=== PATIENT | female | born 1970 ===

== ENCOUNTER 2016-10-17 05:28 | Emergency (ER) | payer OTHER ==
[2016-10-17 05:54] VITALS: RESP 20
--- NOTE | 2016-10-17 06:21 | C.PDOC ---
History Of Present Illness 46 year old female presents to the ED complaining of vaginal pressure, dysuria, and hematuria for two days. Patient notes she had a partial hysterectomy and denies fever, abdominal pain, and vaginal discharge. Time Seen by Provider: 10/17/16 05:40 Chief Complaint (Nursing): Female Genitourinary History Per: Patient History/Exam Limitations: no limitations Onset/Duration Of Symptoms: Days Current Symptoms Are (Timing): Still Present Quality Of Discomfort: Pressure Associated Symptoms: denies: Fever, Chills, Nausea, Vomiting, Diarrhea Abnormal Vaginal Bleeding: No Past Medical History Reviewed: Historical Data, Nursing Documentation, Vital Signs Vital Signs: Last Vital Signs Temp 98.5 F 10/17/16 05:48 Pulse 82 10/17/16 05:48 Resp 20 10/17/16 05:48 BP 129/85 10/17/16 05:48 Pulse Ox 98 10/17/16 06:24 - Medical History PMH: Colonic Polyps, Gastritis, Gall Bladder Disease, Obstructive Bowel (10/23/14 ) Surgical History: Appendectomy, Cholecystectomy, Endoscopy - [facility] Procedures CLOSED ENDOSCOPIC BIOPSY OF LARGE INTESTINE (01/16/15) INSPECTION OF LOWER INTESTINAL TRACT, PERC ENDO APPROACH (04/22/15) RESECTION OF CERVIX, ENDO (12/23/15) RESECTION OF ILEOCECAL VALVE, OPEN APPROACH (04/22/15) RESECTION OF RIGHT FALLOPIAN TUBE, ENDO (12/23/15) RESECTION OF RIGHT OVARY, ENDO (12/23/15) RESECTION OF UTERUS, ENDO (12/23/15) Family History: States: Unknown Family Hx - Social History Hx Tobacco Use: No Hx Alcohol Use: No Hx Substance Use: No - Immunization History Hx Influenza Vaccination: No Hx Pneumococcal Vaccination: No Review Of Systems Constitutional: Negative for: Fever, Chills, Sweats Cardiovascular: Negative for: Chest Pain Respiratory: Negative for: Cough, Shortness of Breath Gastrointestinal: Negative for: Nausea, Vomiting, Abdominal Pain, Diarrhea Genitourinary: Positive for: Dysuria, Hematuria. Negative for: Vaginal Discharge, Vaginal Bleeding Physical Exam - Physical Exam Appears: Non-toxic, No Acute Distress Skin: Warm, Dry, No Rash Head: Atraumatic Neck: Supple Chest: Symmetrical, No Deformity Cardiovascular: Rhythm Regular Gastrointestinal/Abdominal: Soft, No Tenderness, No Distention, No Guarding, No Rebound Pelvic: No Vaginal Bleeding, No Vaginal Discharge, No Mass (no palpable mass ) Extremity: Normal ROM, No Tenderness Neurological/Psych: Oriented x3 ED Course And Treatment O2 Sat by Pulse Oximetry: 98 (room air ) Pulse Ox Interpretation: Normal Progress Note: UA reviewed- Pt with UTI. will d/C on PO abx and pain medications. Pt advised to follow up in clinic and to return to ER if sx worsen Disposition Counseled Patient/Family Regarding: Diagnosis, Need For Followup, Rx Given - Disposition Referrals: [facility] [Outside] Disposition: HOME/ ROUTINE Disposition Time: 06:48 Condition: STABLE Additional Instructions: Increase PO fluids Take medications as directed Follow up with PMD/ FACILITIES PLANNER clinic Return to ER if worse Prescriptions: Ibuprofen [Motrin] 600 mg PO Q6H #30 tab Nitrofurantoin Macrocrystals [Macrobid] 1 cap PO BID #14 cap Instructions: Urinary Tract Infection in Women (ED) Print Language: POLISH - Clinical Impression Clinical Impression: Urinary tract infection - Scribe Statement The provider has reviewed the documentation as recorded by the Scribsolitario Abraham All medical record entries made by the Rebecaibsolitario were at my direction and personally dictated by me. I have reviewed the chart and agree that the record accurately reflects my personal performance of the history, physical exam, medical decision making, and the department course for this patient. I have also personally directed, reviewed, and agree with the discharge instructions and disposition.
[2016-10-17 06:44] LABS: RBC URINE 4 /hpf (0-3); URINE BILIRUBIN NEGATIVE (NEGATIVE); URINE BLOOD 2+ (NEGATIVE); URINE COLOR Yellow (YELLOW); URINE GLUCOSE (UA) NORMAL (Normal); URINE HYALINE CAST 0-2 /lpf (0-2); URINE KETONE NEGATIVE (NEGATIVE); URINE LEUKOCYTE ESTERASE NEG Leu/uL (Negative); URINE PROTEIN 1+ mg/dL (NEGATIVE); URINE UROBILINOGEN NORMAL mg/dL (0.2-1.0); WBC URINE 9 /hpf (0-5)
[2016-10-17 07:04] VITALS: BP 124/78; PULSE 78; TEMP 98; O2SAT 97
== END 2016-10-17 07:01 | disposition home or self-care (01) ==
LOC: C.ER 05:28
DX: N39.0 Urinary tract infection, site not specified (principal)

== ENCOUNTER 2017-01-26 06:20 | Emergency (ER) | payer OTHER ==
[2017-01-26 06:21] VITALS: BMI 31.9
[2017-01-26 07:23] LABS: URINE BILIRUBIN NEGATIVE (NEGATIVE); URINE BLOOD NEGATIVE (NEGATIVE); URINE COLOR YELLOW (YELLOW); URINE GLUCOSE (UA) NEGATIVE (Normal); URINE KETONE NEGATIVE (NEGATIVE); URINE PROTEIN NEGATIVE (NEGATIVE); URINE UROBILINOGEN Normal mg/dL (0.2-1.0)
[2017-01-26 07:24] LABS: RBC URINE < 1 /hpf (0-3); URINE BACTERIA RARE (<OCC); URINE LEUKOCYTE ESTERASE NEGATIVE Leu/uL (Negative); WBC URINE 2 /hpf (0-5)
[2017-01-26] MEDS ORDERED: Sodium Chloride 0.9% 1,000 ML IV ONE (07:25)
--- NOTE | 2017-01-26 07:39 | C.PDOC ---
History Of Present Illness 46 y/o female presents to ED with c/o RUQ abdominal pain x Tuesday (2 days). Patient reports associated nausea, 1 episode of vomiting, and reports stools are of whitish color. Patient notes past history of appendectomy and cholecystectomy. Denies fever, chills, diarrhea, urinary symptoms, or other associated symptoms. Time Seen by Provider: 01/26/17 07:14 Chief Complaint (Nursing): Abdominal Pain History Per: Patient History/Exam Limitations: no limitations Onset/Duration Of Symptoms: Days Current Symptoms Are (Timing): Still Present Location Of Pain/Discomfort: RUQ Associated Symptoms: Nausea, Vomiting. denies: Fever, Chills, Diarrhea, Urinary Symptoms Recent travel outside of the [place]: No Past Medical History Reviewed: Historical Data, Nursing Documentation, Vital Signs Vital Signs: Last Vital Signs Temp 98 F 01/26/17 09:43 Pulse 66 01/26/17 09:43 Resp 20 01/26/17 09:43 BP 145/83 01/26/17 09:43 Pulse Ox 97 01/26/17 09:53 - Medical History PMH: Colonic Polyps, Gastritis, Gall Bladder Disease, Obstructive Bowel (10/23/14 ) Surgical History: Appendectomy, Cholecystectomy, Endoscopy - [facility] Procedures CLOSED ENDOSCOPIC BIOPSY OF LARGE INTESTINE (01/16/15) INSPECTION OF LOWER INTESTINAL TRACT, PERC ENDO APPROACH (04/22/15) RESECTION OF CERVIX, ENDO (12/23/15) RESECTION OF ILEOCECAL VALVE, OPEN APPROACH (04/22/15) RESECTION OF RIGHT FALLOPIAN TUBE, ENDO (12/23/15) RESECTION OF RIGHT OVARY, ENDO (12/23/15) RESECTION OF UTERUS, ENDO (12/23/15) Family History: States: Unknown Family Hx - Social History Hx Tobacco Use: No Hx Alcohol Use: No Hx Substance Use: No - Immunization History Hx Influenza Vaccination: No Hx Pneumococcal Vaccination: No Review Of Systems Except As Marked, All Systems Reviewed And Found Negative. Constitutional: Negative for: Fever, Chills Cardiovascular: Negative for: Chest Pain Respiratory: Negative for: Cough Gastrointestinal: Positive for: Nausea, Vomiting, Abdominal Pain. Negative for : Diarrhea Genitourinary: Negative for: Dysuria Skin: Negative for: Rash Physical Exam - Physical Exam Appears: Non-toxic, No Acute Distress Skin: Normal Color, Warm, Dry Head: Atraumatic, Normacephalic Oral Mucosa: Moist Chest: Symmetrical Cardiovascular: Rhythm Regular Respiratory: Normal Breath Sounds, No Rales, No Rhonchi, No Wheezing Gastrointestinal/Abdominal: Soft, Tenderness (RUQ), No Guarding, No Rebound Back: Normal Inspection Extremity: Normal ROM, Capillary Refill (< 2 sec.) Neurological/Psych: Oriented x3, Normal Speech, Normal Cognition ED Course And Treatment - Laboratory Results Result Diagrams: 01/26/17 07:49 01/26/17 07:49 Lab Interpretation: Normal O2 Sat by Pulse Oximetry: 97 (RA) Pulse Ox Interpretation: Normal - CT Scan/US Ultrasound Abdomen RUQ Other Rad Studies (CT/US): Read By Radiologist, Radiology Report Reviewed CT/US Interpretation: FINDINGS: LIVER: Measures 13.0 cm in length. Diffusely increased echogenicity of the liver parenchyma. Consistent with fatty infiltration. No mass. Smooth contour. No biliary dilatation. GALLBLADDER: Status post cholecystectomy. COMMON BILE DUCT: Measures 3 mm. No stones. No dilatation. PANCREAS: Limited visualization. No abnormality identified. RIGHT KIDNEY: Measures 11.1 cm in length. Normal echogenicity. No calculus, mass, or hydronephrosis. AORTA: No aneurysmal dilatation. IVC: Unremarkable. OTHER FINDINGS: None . IMPRESSION: Fatty infiltration of the liver. Status post cholecystectomy. Otherwise unremarkable. Progress Note: Toradol, Zofran, IV fluids, labs, and ultrasound ordered. On re- evaluation abdomen soft non-tender Reassessment Condition: Improved Medical Decision Making Medical Decision Making: On re-evaluation abdomen soft, family reports similar pain for over 1 month Disposition Counseled Patient/Family Regarding: Studies Performed, Diagnosis, Need For Followup, Rx Given - Disposition Referrals: Jennifer Allison MD [Primary Care Provider] - Disposition: HOME/ ROUTINE Disposition Time: 09:30 Condition: STABLE Instructions: Abdominal Pain (ED) Forms: [employer] (Uzbek) Print Language: POLISH - POA Present On Arrival: None - Clinical Impression Clinical Impression: Vomiting, Abdominal pain - 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 - Scribe Statement The provider has reviewed the documentation as recorded by the Scribe SM All medical record entries made by the Scribe were at my direction and personally dictated by me. I have reviewed the chart and agree that the record accurately reflects my personal performance of the history, physical exam, medical decision making, and the department course for this patient. I have also personally directed, reviewed, and agree with the discharge instructions and disposition.
[2017-01-26] MEDS ORDERED: Sodium Chloride 0.9% 1,000 ML ONE (07:41)
[2017-01-26 07:56] LABS: BASO % 0.5 % (0.0-2.0); EOS # 0.1 K/uL (0.0-0.7); EOS % 2.6 % (0.0-4.0); HEMATOCRIT 42.3 % (34.0-47.0); LYMPH % 36.8 % (20.0-40.0); MEAN CELL VOLUME 91.5 fL (81.0-99.0); MEAN CORPUSCULAR HEMOGLOBIN 29.9 pg (27.0-31.0); MEAN CORPUSCULAR HGB CONC 32.6 g/dL (33.0-37.0); MEAN PLATELET VOLUME 8.9 fL (7.2-11.7); MONO # 0.4 K/uL (0.0-0.8); MONO % 6.5 % (0.0-10.0); NRBC % 0.1 % (0.0-2.0); RED CELL DISTRIBUTION WIDTH 13.4 % (11.5-14.5); WHITE BLOOD COUNT 5.5 K/uL (4.8-10.8)
[2017-01-26 08:06] LABS: CHLORIDE 106 mmol/L (98-107)
[2017-01-26 08:07] LABS: SODIUM 136 mmol/L (132-148)
[2017-01-26 08:09] LABS: ALB/GLOB RATIO 1.1 (1.0-2.1); ALKALINE PHOSPHATASE 80 U/L (38-126); AST/SGOT 29 U/L (14-36); BILIRUBIN,TOTAL 0.7 mg/dL (0.2-1.3); CARBON DIOXIDE 19 mmol/L (22-30); GFR AFRICAN-AMERICAN > 60; TOTAL PROTEIN 6.9 g/dL (6.3-8.3)
[2017-01-26 08:10] LABS: ALT/SGPT 38 U/L (9-52); BLOOD UREA NITROGEN 10 mg/dL (7-17); CALCIUM 8.3 mg/dl (8.6-10.4); GLUCOSE,RANDOM 86 mg/dL (65-105)
--- NOTE | 2017-01-26 09:15 | US ---
HISTORY: RUQ abd pain COMPARISON: None. TECHNIQUE: Sonographic evaluation of the right upper quadrant of the abdomen. FINDINGS: LIVER: Measures 13.0 cm in length. Diffusely increased echogenicity of the liver parenchyma. Consistent with fatty infiltration. No mass. Smooth contour. No biliary dilatation. GALLBLADDER: Status post cholecystectomy. COMMON BILE DUCT: Measures 3 mm. No stones. No dilatation. PANCREAS: Limited visualization. No abnormality identified. RIGHT KIDNEY: Measures 11.1 cm in length. Normal echogenicity. No calculus, mass, or hydronephrosis. AORTA: No aneurysmal dilatation. IVC: Unremarkable. OTHER FINDINGS: None . IMPRESSION: Fatty infiltration of the liver. Status post cholecystectomy. Otherwise unremarkable.
[2017-01-26 09:44] VITALS: BP 145/83; PULSE 66; RESP 20; TEMP 98
[2017-01-26 09:53] VITALS: O2SAT 97
== END 2017-01-26 09:44 | disposition home or self-care (01) ==
LOC: C.ER 06:20 → SUPCPDRO 06:20 → C.ER 09:44
DX: R10.11 Right upper quadrant pain (principal); R11.10 Vomiting, unspecified
CPT/HCPCS: 76705; 80053; 81001; 83690; 84703; 85025; 96361; 96374; 96375; 99284; J1885; J2405; J7040

== ENCOUNTER 2017-03-26 15:45 | Emergency (ER) | payer OTHER ==
[2017-03-26 15:45] VITALS: BMI 31.9
[2017-03-26 15:56] VITALS: PULSE 80
[2017-03-26] MEDS ORDERED: Bacitracin 500 Units/gm Oint Foilpak UD TOP ONE (17:26)
--- NOTE | 2017-03-26 17:30 | C.PDOC ---
History Of Present Illness 46 y/o female c/o pain and discharge from right breast from yesterday with no hx trauma, no fever or chills. pt reports scant bloody appearing discharge on bra. . Time Seen by Provider: 03/26/17 17:04 Chief Complaint (Nursing): Breast Problem History Per: Patient History/Exam Limitations: no limitations Onset/Duration Of Symptoms: Days (1) Current Symptoms Are (Timing): Still Present Severity: Mild Pain Scale Rating Of: 4 Past Medical History Reviewed: Historical Data, Nursing Documentation, Vital Signs Vital Signs: Last Vital Signs Temp 98.0 F 03/26/17 15:54 Pulse 80 03/26/17 15:54 Resp 20 03/26/17 15:54 BP 126/83 03/26/17 15:54 Pulse Ox 98 03/26/17 18:04 - Medical History PMH: Colonic Polyps, Gastritis, Gall Bladder Disease, Obstructive Bowel (10/23/14 ) Denies: Chronic Kidney Disease Surgical History: Appendectomy, Cholecystectomy, Endoscopy - [facility] Procedures CLOSED ENDOSCOPIC BIOPSY OF LARGE INTESTINE (01/16/15) INSPECTION OF LOWER INTESTINAL TRACT, PERC ENDO APPROACH (04/22/15) RESECTION OF CERVIX, ENDO (12/23/15) RESECTION OF ILEOCECAL VALVE, OPEN APPROACH (04/22/15) RESECTION OF RIGHT FALLOPIAN TUBE, ENDO (12/23/15) RESECTION OF RIGHT OVARY, ENDO (12/23/15) RESECTION OF UTERUS, ENDO (12/23/15) Family History: States: Unknown Family Hx - Social History Hx Tobacco Use: No Hx Alcohol Use: No Hx Substance Use: No - Immunization History Hx Tetanus Toxoid Vaccination: Yes Hx Influenza Vaccination: No Hx Pneumococcal Vaccination: No Review Of Systems Constitutional: Negative for: Fever, Chills Cardiovascular: Negative for: Chest Pain Skin: Negative for: Rash Physical Exam - Physical Exam Appears: Non-toxic, No Acute Distress Skin: Warm, Dry Head: Atraumatic, Normacephalic Pelvic: Other (left breast non tender, right breast mild tenderness at 4 oclock position (chronic per pt) , no erythema, warmth or swelling noted tro breast, no flucutuance, no mass palpated, 3-4 mm crack in nipple, no active discharge) Neurological/Psych: Oriented x3, Normal Speech, Normal Cognition ED Course And Treatment O2 Sat by Pulse Oximetry: 98 Medical Decision Making Medical Decision Making: pt with crack in nipple with scant bloody discharge. no signs of infection, abscess, no mass palpated. pt advised to f/u med/senior data quality analyst clinic. Disposition Counseled Patient/Family Regarding: Diagnosis, Need For Followup - Disposition Referrals: [facility] at [facility] [Outside] Disposition: HOME/ ROUTINE Disposition Time: 18:06 Condition: STABLE Additional Instructions: Trinidad seguimiento con la jaimiea diane en 1-2 su. Aplique pomada antibitica en el pezn 2 veces al da. (bacitracina o neosporina). Regrese a urgencias por cualquier peor sntoma Forms: [employer] (Peruvian) - Clinical Impression Clinical Impression: Breast pain, right
[2017-03-26] MEDS ORDERED: Bacitracin 500 Units/gm Oint Foilpak UD ONE (17:31)
[2017-03-26 18:24] VITALS: BP 122/70; RESP 16; TEMP 98.2
[2017-03-27 20:11] VITALS: O2SAT 98
== END 2017-03-26 18:22 | disposition home or self-care (01) ==
LOC: C.ER 15:45
DX: N64.4 Mastodynia (principal)

== ENCOUNTER 2017-11-25 07:39 | Day surgery (SDC) | payer OTHER ==
[2017-11-25 08:48] VITALS: TEMP 97
[2017-11-25] MEDS ORDERED: Lactated Ringer's 1,000 ML IV ONE (10:05)
[2017-11-25] MEDS ORDERED: Propofol 10 mg/ml Inj (20 ML) ONE (10:09)
[2017-11-25] MEDS ORDERED: Midazolam 2 MG/2 ML VIAL ONE (10:41)
[2017-11-25 13:13] VITALS: O2SAT 99
[2017-11-25 13:20] VITALS: BP 121/76; PULSE 64; RESP 20
== END 2017-11-25 11:50 | disposition home or self-care (01) ==
LOC: C.ENDO 07:39
PROVIDERS: ATTEND Internal Medicine Gastroenterology
DX: K52.9 Noninfective gastroenteritis and colitis, unspecified (principal); Z90.49 Acquired absence of other specified parts of digestive tract; K57.30 Diverticulosis of large intestine without perforation or abscess without bleeding; K64.8 Other hemorrhoids; R10.13 Epigastric pain; K29.70 Gastritis, unspecified, without bleeding
CPT/HCPCS: 43239; 45378; 88305; 88313; 88342; J2250; J2704; J7120

== ENCOUNTER 2017-11-29 16:01 | Emergency (ER) | payer OTHER ==
[2017-11-29 16:36] VITALS: BMI 30.9
[2017-11-29 16:43] VITALS: RESP 18
[2017-11-29] MEDS ORDERED: Belladonna-Phenobarbital PO STA (16:52)
[2017-11-29 16:53] LABS: SQUAMOUS EPITHIAL 3 /hpf (0-5); URINE BACTERIA RARE (<OCC); URINE BILIRUBIN NEGATIVE (NEGATIVE); URINE BLOOD NEGATIVE (NEGATIVE); URINE CLARITY Clear (Clear); URINE COLOR Yellow (YELLOW); URINE GLUCOSE (UA) NORMAL (Normal); URINE LEUKOCYTE ESTERASE NEG Leu/uL (Negative); URINE PROTEIN NEGATIVE (NEGATIVE); URINE UROBILINOGEN NORMAL mg/dL (0.2-1.0)
[2017-11-29] MEDS ORDERED: Lactated Ringer's 1,000 ML IVB STA (16:53)
[2017-11-29] MEDS ORDERED: Belladonna-Phenobarbital ONE (16:59)
[2017-11-29] MEDS ORDERED: Lactated Ringer's 1,000 ML ONE (16:59)
[2017-11-29 17:15] LABS: BASO % 0.5 % (0.0-2.0); EOS # 0.2 K/uL (0.0-0.7); EOS % 1.8 % (0.0-4.0); LYMPH # 2.6 K/uL (1.0-4.3); LYMPH % 31.4 % (20.0-40.0); MEAN CELL VOLUME 90.3 fL (81.0-99.0); MEAN CORPUSCULAR HEMOGLOBIN 30.9 pg (27.0-31.0); MEAN CORPUSCULAR HGB CONC 34.3 g/dL (33.0-37.0); MEAN PLATELET VOLUME 8.4 fL (7.2-11.7); MONO # 0.5 K/uL (0.0-0.8); MONO % 5.9 % (0.0-10.0); NEUT % 60.4 % (50.0-75.0); RBC 4.51 Mil/uL (3.80-5.20); RED CELL DISTRIBUTION WIDTH 13.2 % (11.5-14.5); WHITE BLOOD COUNT 8.3 K/uL (4.8-10.8)
[2017-11-29 17:32] LABS: ALB/GLOB RATIO 1.3 (1.0-2.1); ALBUMIN 4.3 g/dL (3.5-5.0); ALT/SGPT 30 U/L (9-52); AST/SGOT 28 U/L (14-36); BLOOD UREA NITROGEN 11 mg/dL (7-17); CALCIUM 8.7 mg/dl (8.6-10.4); GFR AFRICAN-AMERICAN > 60; GFR NON-AFRICAN AMERICAN > 60; INR 1.1; LIPASE 117 U/L (23-300); PROTHROMBIN TIME 11.9 SECONDS (9.7-12.2)
--- NOTE | 2017-11-29 18:24 | C.PDOC ---
Time Seen by Provider: 11/29/17 16:34 Chief Complaint (Nursing): GI Problem History Per: Patient, Family Onset/Duration Of Symptoms: Days (months) Current Symptoms Are (Timing): Still Present Severity: Moderate Location Of Pain/Discomfort: RUQ Quality Of Discomfort: Unable To Describe, "Pain" Associated Symptoms: Diarrhea (chronic) Alleviating Factors: None Last Bowel Movement: Today Additional History Per: Prior Records Past Medical History Reviewed: Historical Data, Nursing Documentation, Vital Signs Vital Signs: Last Vital Signs Temp 98.4 F 11/29/17 16:37 Pulse 82 11/29/17 16:37 Resp 18 11/29/17 16:37 BP 126/86 11/29/17 16:37 Pulse Ox 95 11/29/17 16:37 - Medical History PMH: Colonic Polyps, Gastritis, Obstructive Bowel (10/23/14) Other PMH: Prolactinoma Surgical History: Appendectomy, Cholecystectomy, Endoscopy (11/25/17) Other Surgeries: Hysterectomy - [facility] Procedures CLOSED ENDOSCOPIC BIOPSY OF LARGE INTESTINE (01/16/15) INSPECTION OF LOWER INTESTINAL TRACT, PERC ENDO APPROACH (04/22/15) RESECTION OF CERVIX, ENDO (12/23/15) RESECTION OF ILEOCECAL VALVE, OPEN APPROACH (04/22/15) RESECTION OF RIGHT FALLOPIAN TUBE, ENDO (12/23/15) RESECTION OF RIGHT OVARY, ENDO (12/23/15) RESECTION OF UTERUS, ENDO (12/23/15) Family History: States: Unknown Family Hx - Social History Hx Tobacco Use: No Hx Alcohol Use: No Hx Substance Use: No - Immunization History Hx Tetanus Toxoid Vaccination: Yes Hx Influenza Vaccination: No Hx Pneumococcal Vaccination: No Review Of Systems Except As Marked, All Systems Reviewed And Found Negative. Constitutional: Negative for: Fever, Weakness Cardiovascular: Negative for: Chest Pain Respiratory: Negative for: Shortness of Breath Gastrointestinal: Positive for: Abdominal Pain, Diarrhea, Hematochezia. Negative for: Vomiting Genitourinary: Negative for: Dysuria Musculoskeletal: Negative for: Neck Pain Skin: Negative for: Rash Neurological: Negative for: Weakness, Numbness Physical Exam - Physical Exam Appears: Non-toxic, No Acute Distress Skin: Normal Color, Warm, Dry, No Rash Head: Atraumatic, Normacephalic Eye(s): bilateral: Normal Inspection, PERRL, EOMI Oral Mucosa: Moist Neck: Normal ROM, Supple Cardiovascular: Rhythm Regular Respiratory: Normal Breath Sounds, No Accessory Muscle Use Gastrointestinal/Abdominal: Soft, Tenderness (right upper), No Guarding, No Rebound Extremity: Normal ROM Neurological/Psych: Oriented x3, Normal Motor, Normal Sensation ED Course And Treatment - Laboratory Results Result Diagrams: 11/29/17 17:10 11/29/17 17:10 Lab Interpretation: No Changes Compared To Prior Results O2 Sat by Pulse Oximetry: 95 Pulse Ox Interpretation: Normal Progress Note: Pt recently had a colonoscopy and upper endoscopy with no major abnormalities. - Physician Consult Information Physician Contacted: Rayo Lundy (GI) Outcome Of Conversation: He recommended discharge home with outpt f/up. Disposition Counseled Patient/Family Regarding: Studies Performed, Diagnosis, Need For Followup, Rx Given - Disposition Referrals: Kenroy Smart MD [Medical Doctor] - [facility] [Outside] Disposition: HOME/ ROUTINE Disposition Time: 18:27 Condition: STABLE Additional Instructions: Follow up with your Fire Alarm Inspector for further evaluation and treatment. Return to the ER if you develop fever, vomiting, worsening of symptoms or if you have any other concerns. Prescriptions: Dicyclomine [Bentyl] 20 mg PO QID PRN #20 tab PRN Reason: Irritable Bowel Symptoms Hydrocortisone 2.5% (Rectal) [Anusol-HC] 1 applic VA BID PRN #1 tube PRN Reason: Hemorrhoids Instructions: Diarrhea in Adolescents and Adults Forms: [facility] (Bahamian), Gen Discharge Inst Bahamian, General Discharge Instructions Print Language: HONDURAN - Clinical Impression Clinical Impression: Chronic diarrhea
[2017-11-29 18:58] VITALS: BP 135/87; PULSE 71; TEMP 98.2; O2SAT 100
== END 2017-11-29 18:58 | disposition home or self-care (01) ==
LOC: C.ER 16:01
DX: K52.9 Noninfective gastroenteritis and colitis, unspecified (principal)
CPT/HCPCS: 80053; 81001; 83690; 85025; 85610; 85730; 96374; 99285; J7120

== ENCOUNTER 2018-03-20 08:26 | Emergency (ER) | payer OTHER ==
[2018-03-20 08:27] VITALS: BMI 22.8
[2018-03-20 08:39] VITALS: O2SAT 98
[2018-03-20] MEDS ORDERED: Oxycodone/Acetaminophen 5/325 mg Tab PO STA (09:19)
--- NOTE | 2018-03-20 09:19 | C.PDOC ---
History Of Present Illness 47 y/o female with history of Gastritis presents to ED with c/o upper right sided abdominal pain since 2014 worse for 2 weeks. Patient has been seen by clinic and had a scheduled colonoscopy/endoscopy but reports pain is persistent. Patient denies fever, chills, nausea, vomiting or any other complaints at this time. Time Seen by Provider: 03/20/18 08:57 Chief Complaint (Nursing): Abdominal Pain History Per: Patient History/Exam Limitations: no limitations Onset/Duration Of Symptoms: Days Current Symptoms Are (Timing): Still Present Location Of Pain/Discomfort: RUQ Past Medical History Reviewed: Historical Data, Nursing Documentation, Vital Signs Vital Signs: Last Vital Signs Temp 98.5 F 03/20/18 08:36 Pulse 75 03/20/18 08:36 Resp 16 03/20/18 08:36 BP 121/79 03/20/18 08:36 Pulse Ox 98 03/20/18 08:36 - Medical History PMH: Colonic Polyps, Gastritis, Gall Bladder Disease, Obstructive Bowel (10/23/14) Surgical History: Appendectomy, Cholecystectomy, Endoscopy (11/25/17) - [facility] Procedures CLOSED ENDOSCOPIC BIOPSY OF LARGE INTESTINE (01/16/15) INSPECTION OF LOWER INTESTINAL TRACT, PERC ENDO APPROACH (04/22/15) RESECTION OF CERVIX, ENDO (12/23/15) RESECTION OF ILEOCECAL VALVE, OPEN APPROACH (04/22/15) RESECTION OF RIGHT FALLOPIAN TUBE, ENDO (12/23/15) RESECTION OF RIGHT OVARY, ENDO (12/23/15) RESECTION OF UTERUS, ENDO (12/23/15) Family History: States: No Known Family Hx - Social History Hx Tobacco Use: No Hx Alcohol Use: No Hx Substance Use: No - Immunization History Hx Tetanus Toxoid Vaccination: Yes Hx Influenza Vaccination: No Hx Pneumococcal Vaccination: No Review Of Systems Constitutional: Negative for: Fever, Chills Gastrointestinal: Positive for: Abdominal Pain. Negative for: Nausea, Vomiting, Diarrhea Genitourinary: Negative for: Dysuria Skin: Negative for: Rash Physical Exam - Physical Exam Appears: Non-toxic, No Acute Distress Skin: Warm, Dry, No Rash Head: Atraumatic, Normacephalic Eye(s): bilateral: Normal Inspection Oral Mucosa: Moist Neck: Supple Cardiovascular: Rhythm Regular Respiratory: Normal Breath Sounds, No Rales, No Rhonchi, No Wheezing Gastrointestinal/Abdominal: Soft, No Tenderness, No Guarding, No Rebound Back: No CVA Tenderness Neurological/Psych: Oriented x3, Normal Speech, Normal Cognition ED Course And Treatment - Laboratory Results Result Diagrams: 03/20/18 09:46 03/20/18 09:46 O2 Sat by Pulse Oximetry: 98 (RA) Pulse Ox Interpretation: Normal Reevaluation Time: 10:22 Reassessment Condition: Improved (LABS WNL, NO S/S ACUTE ABD. ADVISED NEED TO CONT FU W GI SCHEDULED.) Disposition Counseled Patient/Family Regarding: Studies Performed, Diagnosis, Need For Followup, Rx Given - Disposition Referrals: [facility] [Outside] [facility] [Outside] Disposition: HOME/ ROUTINE Disposition Time: 10:22 Condition: GOOD Prescriptions: Tramadol HCl [Ultram] 50 mg PO QID #20 tab Instructions: Chronic Pain (DC) Forms: [employer] (Congolese) - Clinical Impression Clinical Impression: Chronic abdominal pain - Scribe Statement The provider has reviewed the documentation as recorded by the Scribsolitario Omalley All medical record entries made by the Rebecaibsolitario were at my direction and personally dictated by me. I have reviewed the chart and agree that the record accurately reflects my personal performance of the history, physical exam, medical decision making, and the department course for this patient. I have also personally directed, reviewed, and agree with the discharge instructions and disposition.
[2018-03-20 09:48] LABS: SQUAMOUS EPITHIAL 7 /hpf (0-5); URINE BACTERIA RARE (<OCC); URINE BILIRUBIN NEGATIVE (NEGATIVE); URINE BLOOD NEGATIVE (NEGATIVE); URINE CLARITY Hazy (Clear); URINE COLOR Yellow (YELLOW); URINE GLUCOSE (UA) NORMAL (Normal); URINE LEUKOCYTE ESTERASE NEG Leu/uL (Negative); URINE PROTEIN NEGATIVE (NEGATIVE); URINE UROBILINOGEN NORMAL mg/dL (0.2-1.0)
[2018-03-20 09:51] LABS: BASO # 0.1 K/uL (0.0-0.2); BASO % 0.8 % (0.0-2.0); EOS # 0.1 K/uL (0.0-0.7); EOS % 1.3 % (0.0-4.0); HEMOGLOBIN 14.6 g/dL (11.0-16.0); LYMPH # 2.3 K/uL (1.0-4.3); LYMPH % 31.8 % (20.0-40.0); MEAN CELL VOLUME 90.9 fL (81.0-99.0); MEAN CORPUSCULAR HEMOGLOBIN 30.8 pg (27.0-31.0); MEAN CORPUSCULAR HGB CONC 33.9 g/dL (33.0-37.0); MEAN PLATELET VOLUME 8.3 fL (7.2-11.7); MONO # 0.4 K/uL (0.0-0.8); MONO % 5.4 % (0.0-10.0); NEUT # 4.3 K/uL (1.8-7.0); NEUT % 60.7 % (50.0-75.0); NRBC % 0.1 % (0.0-2.0); RBC 4.72 Mil/uL (3.80-5.20); RED CELL DISTRIBUTION WIDTH 13.4 % (11.5-14.5); WHITE BLOOD COUNT 7.1 K/uL (4.8-10.8)
[2018-03-20 10:02] LABS: ALB/GLOB RATIO 1.2 (1.0-2.1); ALBUMIN 4.1 g/dL (3.5-5.0); ALT/SGPT 32 U/L (9-52); AST/SGOT 19 U/L (14-36); BLOOD UREA NITROGEN 11 mg/dL (7-17); GFR NON-AFRICAN AMERICAN > 60; LIPASE 77 U/L (23-300)
[2018-03-20] MEDS ORDERED: Oxycodone/Acetaminophen 5/325 mg Tab ONE (10:02)
[2018-03-20 11:32] VITALS: BP 121/74; PULSE 66; RESP 17; TEMP 98.9
== END 2018-03-20 11:32 | disposition home or self-care (01) ==
LOC: C.ER 08:26
DX: R10.9 Unspecified abdominal pain (principal); G89.29 Other chronic pain; K82.9 Disease of gallbladder, unspecified; K63.5 Polyp of colon

== ENCOUNTER 2018-03-20 13:10 | Emergency (ER) | payer OTHER ==
[2018-03-20 13:10] VITALS: BMI 22.8
[2018-03-20 13:38] VITALS: BP 128/85; PULSE 76; RESP 16; TEMP 97.7; O2SAT 98
== END 2018-03-20 15:28 | disposition left against medical advice (07) ==
LOC: C.ER 13:10
DX: Z02.89 Encounter for other administrative examinations (principal); R42 Dizziness and giddiness

== ENCOUNTER 2018-06-30 08:08 | Outpatient (CLI) | payer OTHER | END 2018-06-30 08:09 | disposition home or self-care (01) | LOC: C.LAB 08:08 | DX: E23.6 Other disorders of pituitary gland (principal); E03.9 Hypothyroidism, unspecified ==

== ENCOUNTER 2018-09-27 08:08 | Outpatient (CLI) | payer OTHER | END 2018-09-27 08:09 | disposition home or self-care (01) | LOC: C.LAB 08:08 | DX: E23.6 Other disorders of pituitary gland (principal) ==

== ENCOUNTER 2018-10-28 09:08 | Emergency (ER) | payer OTHER ==
[2018-10-28 09:08] VITALS: BMI 22.8
[2018-10-28 09:25] VITALS: TEMP 97.9
--- NOTE | 2018-10-28 10:42 | C.PDOC ---
History Of Present Illness 48 y/o female presents to ED complaining of right eye pain x4 days. States she started having tearing in the right eye and this morning she was unable to move the right side of the face with numbness to the eye. 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 States she recently had viral symptoms. Denies visual changes, slurred speech, extremity weakness, gait changes, chest pain, palpitations, or SOB. Time Seen by Provider: 10/28/18 09:21 Chief Complaint (Nursing): Weakness/Neurological Deficit History Per: Patient History/Exam Limitations: None Onset/Duration Of Symptoms: Days Current Symptoms Are (Timing): Still Present Past Medical History Reviewed: Historical Data, Nursing Documentation, Vital Signs Vital Signs: Last Vital Signs Temp 97.9 F 10/28/18 09:22 Pulse 88 10/28/18 09:22 Resp 17 10/28/18 09:22 BP 164/96 H 10/28/18 09:22 Pulse Ox 95 10/28/18 09:22 Primary Care Provider: Clinic,Med Surg - Medical History PMH: Colonic Polyps, Gastritis, Gall Bladder Disease, Obstructive Bowel (10/23/14) Denies: Chronic Kidney Disease Surgical History: Appendectomy, Cholecystectomy, Endoscopy (11/25/17) - [facility] Procedures CLOSED ENDOSCOPIC BIOPSY OF LARGE INTESTINE (01/16/15) INSPECTION OF LOWER INTESTINAL TRACT, PERC ENDO APPROACH (04/22/15) RESECTION OF CERVIX, ENDO (12/23/15) RESECTION OF ILEOCECAL VALVE, OPEN APPROACH (04/22/15) RESECTION OF RIGHT FALLOPIAN TUBE, ENDO (12/23/15) RESECTION OF RIGHT OVARY, ENDO (12/23/15) RESECTION OF UTERUS, ENDO (12/23/15) Family History: States: No Known Family Hx - Social History Hx Tobacco Use: No Hx Alcohol Use: No Hx Substance Use: No - Immunization History Hx Tetanus Toxoid Vaccination: Yes Hx Influenza Vaccination: No Hx Pneumococcal Vaccination: No Review Of Systems Constitutional: Negative for: Fever, Chills Eyes: Positive for: Pain (right eye). Negative for: Vision Change Cardiovascular: Negative for: Chest Pain, Palpitations Respiratory: Negative for: Cough, Shortness of Breath Gastrointestinal: Negative for: Nausea, Vomiting Neurological: Negative for: Weakness, Change in Speech Physical Exam - Physical Exam Appears: Non-toxic, No Acute Distress, Other (Comfortable) Skin: Warm, Dry Head: Normacephalic Eye(s): bilateral: PERRL (unable to close the right eye fully) Oral Mucosa: Moist Neck: Supple Cardiovascular: Rhythm Regular, No Murmur Respiratory: Normal Breath Sounds, No Rales, No Rhonchi, No Wheezing Extremity: Bilateral: Normal ROM Neurological/Psych: Oriented x3, Normal Speech, Normal Motor (5/5 motor strength), Normal Sensation, Other (has right facial droop, decreased ability to wrinkle the right side of forehead compared to left) Gait: Steady ED Course And Treatment O2 Sat by Pulse Oximetry: 95 (RA) Pulse Ox Interpretation: Normal Progress Note: Patient given motrin, acyclovir, and prednisone. Disposition Counseled Patient/Family Regarding: Diagnosis, Need For Followup, Rx Given - Disposition Referrals: [facility] at [facility] [Outside] Kalli Smith MD [Staff Provider] - Disposition: HOME/ ROUTINE Disposition Time: 10:35 Condition: STABLE Additional Instructions: FOLLOW UP WITH YOUR DOCTOR/CLINIC IN 1-2 DAYS USE MEDICATIONS DIRECTED RETURN TO EMERGENCY ROOM IF YOUR SYMPTOMS BECOME WORSE SEGUIR CON LYONS MDICO / CLNICA EN 1-2 MENA UTILICE MEDICAMENTOS CARLOS SE DIRIGE VUELVA A LA OCTAVIO DE EMERGENCIA SI ELVIA SNTOMAS SE HACEN PEOR Prescriptions: Acyclovir [Zovirax] 800 mg PO 5XD #35 tablet Peg 400/Hypromellose/Glycerin [Artificial Tears Drops] 2 drop OP Q4 #1 bottle predniSONE [predniSONE Tab] 40 mg PO DAILY #10 tab Instructions: Fowler's Palsy (DC) Forms: [employer] [facility] (Italian) Print Language: JORDANIAN - Clinical Impression Clinical Impression: Fowler's palsy - Scribe Statement The provider has reviewed the documentation as recorded by the Scribsolitario Mendoza Provider Attestation: All medical record entries made by the Scribe were at my direction and personally dictated by me. I have reviewed the chart and agree that the record accurately reflects my personal performance of the history, physical exam, medical decision making, and the department course for this patient. I have also personally directed, reviewed, and agree with the discharge instructions and disposition.
[2018-10-28 11:04] VITALS: BP 133/89; PULSE 72; RESP 20
[2018-10-28 14:24] VITALS: O2SAT 95
== END 2018-10-28 11:06 | disposition home or self-care (01) ==
LOC: C.ER 09:08
DX: G51.0 Bell's palsy (principal)

== ENCOUNTER 2018-11-05 10:48 | Emergency (ER) | payer OTHER ==
[2018-11-05 10:49] VITALS: BMI 22.8
[2018-11-05 10:58] VITALS: RESP 18
--- NOTE | 2018-11-05 12:12 | C.PDOC ---
History Of Present Illness 48-year-old female presents to the ED for evaluation of right shoulder pain which began a few days ago. Patient was evaluated in this ED on 10/28 and was diagnosed with Fowler's palsy (right-sided). Patient states she has not taken any pain medication for her shoulder pain. She denies fever, chills, nausea and vomiting. Time Seen by Provider: 11/05/18 11:39 Chief Complaint (Nursing): Pain, Chronic History Per: Patient History/Exam Limitations: no limitations Onset/Duration Of Symptoms: Hrs Current Symptoms Are (Timing): Still Present Past Medical History Reviewed: Historical Data, Nursing Documentation, Vital Signs Vital Signs: Last Vital Signs Temp 98.6 F 11/05/18 10:54 Pulse 63 11/05/18 10:54 Resp 18 11/05/18 10:54 BP 122/76 11/05/18 10:54 Pulse Ox 96 11/05/18 10:54 Primary Care Provider: Jennifer Allison - Medical History PMH: Colonic Polyps, Gastritis, Gall Bladder Disease, Obstructive Bowel (10/23/14) Denies: Chronic Kidney Disease Surgical History: Appendectomy, Cholecystectomy, Endoscopy (11/25/17) - [facility] Procedures CLOSED ENDOSCOPIC BIOPSY OF LARGE INTESTINE (01/16/15) INSPECTION OF LOWER INTESTINAL TRACT, PERC ENDO APPROACH (04/22/15) RESECTION OF CERVIX, ENDO (12/23/15) RESECTION OF ILEOCECAL VALVE, OPEN APPROACH (04/22/15) RESECTION OF RIGHT FALLOPIAN TUBE, ENDO (12/23/15) RESECTION OF RIGHT OVARY, ENDO (12/23/15) RESECTION OF UTERUS, ENDO (12/23/15) Family History: States: Unknown Family Hx - Social History Hx Tobacco Use: No Hx Alcohol Use: No Hx Substance Use: No - Immunization History Hx Tetanus Toxoid Vaccination: Yes Hx Influenza Vaccination: No Hx Pneumococcal Vaccination: No Review Of Systems Constitutional: Negative for: Fever, Chills Gastrointestinal: Negative for: Nausea, Vomiting Musculoskeletal: Positive for: Shoulder Pain (right) Physical Exam - Physical Exam Appears: Non-toxic, No Acute Distress Skin: Normal Color, Warm, Dry, No Rash Head: Atraumatic, Normacephalic Eye(s): bilateral: Normal Inspection Ear(s): Right: Other (no vesicles ), Bilateral: Normal Oral Mucosa: Moist Neck: Normal ROM, Supple, Other (positive muscle spasm to right lateral neck and right trapezius ) Chest: Symmetrical, No Deformity, No Tenderness Cardiovascular: Rhythm Regular, No Murmur Respiratory: Normal Breath Sounds, No Rales, No Rhonchi, No Wheezing Extremity: Normal ROM, Capillary Refill (less than 2 seconds ) Neurological/Psych: Oriented x3, Normal Speech, Normal Cognition Other Neurological Findings: Other (right-sided facial palsy ) ED Course And Treatment O2 Sat by Pulse Oximetry: 96 (on RA) Pulse Ox Interpretation: Normal Disposition Counseled Patient/Family Regarding: Diagnosis, Need For Followup - Disposition Referrals: [facility] at [facility] [Outside] Disposition: HOME/ ROUTINE Disposition Time: 12:17 Condition: STABLE Prescriptions: Cyclobenzaprine [Cyclobenzaprine HCl] 10 mg PO TID PRN #15 tab PRN Reason: Muscle Spasm Naproxen [Naprosyn] 500 mg PO BID PRN #30 tablet PRN Reason: Pain, Moderate (4-7) Instructions: Muscle Spasms (DC), Fowler's Palsy (DC) Forms: Gen Discharge Inst Maori, [employer] (Maori) Print Language: BENGALI - POA Present On Arrival: None - Clinical Impression Clinical Impression: Muscle spasm, Fowler's palsy - Scribe Statement The provider has reviewed the documentation as recorded by the Scribe (Alison Ingram) Provider Attestation: All medical record entries made by the Scribe were at my direction and pe rsonally dictated by me. I have reviewed the chart and agree that the record accurately reflects my personal performance of the history, physical exam, medical decision making, and the department course for this patient. I have also personally directed, reviewed, and agree with the discharge instructions and disposition.
[2018-11-05 12:51] VITALS: BP 112/72; PULSE 76; TEMP 98.7
[2018-11-05 16:53] VITALS: O2SAT 96
== END 2018-11-05 12:51 | disposition home or self-care (01) ==
LOC: C.ER 10:48
DX: M62.838 Other muscle spasm (principal); G51.0 Bell's palsy